=== PATIENT | female | born 1955 | race Caucasian/White ===

== ENCOUNTER 2023-05-06 07:54 | Outpatient (CLI) | payer MEDICARE, SELFPAY ==
--- NOTE | ~2023-05-06 | CT_ITS ---
CT Scan of the Chest without Contrast: Clinical Indication: Lung cancer screening, personal history of nicotine dependence Technique: Contiguous sections were acquired throughout the chest without intravenous contrast. Dose reduction technique was used on this scan by utilizing automated exposure control and iterative recon struction technique. The dose-length product (DLP) was 77.07 mGy-cm. Findings: There is no evidence of any significant mediastinal, hilar or axillary lymphadenopathy. The mediastin al soft tissues appear normal. There is no evidence of pleural or pericardial effusion. 4 mm right upper lobe pulmonary nodule noted (axial image 39). Calcified left lower lobe granuloma no radha. Images through the upper abdomen reveal no abnormalities. Impression: Lung RADS 2: Benign appearance. 12 month follow-up screening CT advised. Reviewed, dictated and finalized at location . Impression: Lung RADS 2: Benign appearance. 12 month follow-up screening CT advised.
--- NOTE | ~2023-05-06 | US_ITS ---
EXAMINATION: US aorta DATE: 05/06/2023 08:47 INDICATION: Abdominal aortic aneurysm screening TECHNIQUE: Grayscale, color Doppler, and pulsed Doppler images of the aorta and common iliac arteries were obtained. COMPARISON: None. FINDINGS: Maximum vascular dimensions are as follows: Proximal aorta: 2.3 cm Mid aorta: 2.1 cm Distal aorta: 1. cm Right common iliac artery: 0.9 cm Left common iliac artery: 1.0 cm There is no evidence of abdominal aortic aneurysm. IMPRESSION: 1. No sonographically detected abdominal aortic aneurysm. Reviewed, dictated and finalized at location B.
== END 2023-05-06 07:55 | disposition home or self-care (01) ==
LOC: CHSIMG 08:00
PROVIDERS: PCP Internal Medicine; Visit Provider Internal Medicine
DX: Z12.2 Encounter for screening for malignant neoplasm of respiratory organs (principal); Z87.891 Personal history of nicotine dependence; Z13.6 Encounter for screening for cardiovascular disorders
CPT/HCPCS: 71271; 76775

== ENCOUNTER 2023-10-07 11:02 | Outpatient (CLI) | payer MEDICARE, SELFPAY ==
--- NOTE | ~2023-10-07 | XR_ITS ---
Right Knee Technique: AP, lateral, and sunrise views were obtained. Clinical History: Enchondroma Findings: No fracture or dislocation is seen. There is a small osteochondroma arising from the medial aspect of the distal femoral metaphyseal region. Possible additional sessile osteochondroma the prox imal fibular versus healed fracture deformity. There is mild tricompartmental degenerative spurring. Soft tissues are unremarkable. No joint effusion is seen. Impression: Osteochondroma at the medial aspect of the distal femoral metaphyseal region. Possible additional sessile osteochondroma of the proximal fibula versus healed fracture deformity. Mild right lumbar mental degenerative change. Reviewed, dictated and finalized at location . INE SPECIALIST Impression: Osteochondroma at the medial aspect of the distal femoral metaphyseal region. Possible additional sessile osteochondroma of the proximal fibula versus healed fracture deformity. Mild right lumbar mental degenerative change.
== END 2023-10-07 11:03 | disposition home or self-care (01) ==
LOC: CHSIMG 11:04
PROVIDERS: PCP Internal Medicine; Visit Provider Internal Medicine
DX: M25.561 Pain in right knee (principal); D16.9 Benign neoplasm of bone and articular cartilage, unspecified
CPT/HCPCS: 73562

== ENCOUNTER 2023-10-10 13:56 | Outpatient (CLI) | payer MEDICARE, SELFPAY ==
[2023-10-10 14:09] LABS: Basophils Absolute Auto 0.03 K/mm3 (0.00-0.10); Basophils Percent Auto 0.4 % (0.0-1.0); Eosinophils Absolute Auto 0.15 K/mm3 (0.02-0.50); Eosinophils Percent Auto 2.2 % (1.0-6.0); Hematocrit 46.4 % (35.0-42.0); Hemoglobin 15.6 g/dL (11.7-13.8); Immature Granulocyte Absolute 0.02 K/mm3 (0.00-0.00); Immature Granulocyte Percent A 0.3 % (0.0-0.0); Lymphocytes Absolute Auto 2.12 K/mm3 (1.10-4.50); Lymphocytes Percent Auto 30.8 % (18.0-42.0); Mean Corpuscular HGB Conc 33.6 g/dL (32.0-36.0); Mean Corpuscular Volume 95.1 fL (78.0-102.0); Mean Platelet Volume 9.7 fl (9.2-11.8); Monocytes Absolute Auto 0.52 K/mm3 (0.10-0.90); Monocytes Percent Auto 7.5 % (2.0-11.0); Neutrophils Absolute Auto 4.1 K/mm3 (1.7-7.2); Neutrophils Percent Auto 58.8 % (50.0-70.0); Platelet Count Result 235 K/mm3 (150-420); Red Blood Count 4.88 M/mm3 (4.20-5.40); Red Cell Distribution Width 12.4 % (11.6-14.4); White Blood Count 6.9 K/mm3 (4.8-10.8)
[2023-10-10 14:43] LABS: Alanine Aminotransferase 24 U/L (14-59); Albumin Level 3.9 g/dL (3.4-5.0); Alkaline Phosphatase 102 U/L (46-116); Amylase 70 U/L (25-115); Anion Gap 4 mmol/L (8-16); Aspartate Amino Transferase 14 U/L (15-37); Bilirubin,Total 0.6 mg/dL (0.00-1.00); Blood Urea Nitrogen 17 mg/dL (7-18); Carbon Dioxide 33 mmol/L (21-32); Chloride 100 mmol/L (98-108); Creatine Kinase 103 U/L (26-192); Estimated Glomerular Filt Rate > 60; Glucose 92 mg/dL (70-99); Lipase 87 U/L (16-77); Osmolality Calculated 285 mOsm/kg (285-295); Potassium 3.4 mmol/L (3.5-5.1); Sodium 137 mmol/L (136-145)
[2023-10-10 14:53] LABS: Calcium 9.5 mg/dL (8.5-10.1)
== END 2023-10-10 13:57 | disposition home or self-care (01) ==
LOC: CHSLAB 13:58
PROVIDERS: PCP Internal Medicine; Visit Provider Internal Medicine
DX: R10.13 Epigastric pain (principal); R07.89 Other chest pain
CPT/HCPCS: 36415; 80053; 82150; 82550; 82553; 83690; 84484; 85025

== ENCOUNTER → 2023-10-15 08:16 | Outpatient (CLI) | payer MEDICARE, SELFPAY ==
--- NOTE | ~2023-10-15 | US_ITS ---
US right upper quadrant INDICATION: Acute pancreatitis PROCEDURE: Realtime right upper abdominal ultrasound. COMPARISON: No prior studies for comparison. FINDINGS: The pancreas is normal without focal mass or pancreatic ductal dilation. Liver echotexture is normal without focal mass or intrahepatic biliary dilatation. There is normal directional flow i n the portal vein. There is a small gallbladder polyp measuring 4 mm. Common bile duct measures 4 mm. No sonographic M urphy's sign. IMPRESSION: 1: Gallbladder polyp measuring 4 mm. Reviewed, dictated and finalized at location A. TS BOOK SERVER
== END ==
PROVIDERS: PCP Internal Medicine; Visit Provider Internal Medicine
DX: K85.90 Acute pancreatitis without necrosis or infection, unspecified (principal); K82.4 Cholesterolosis of gallbladder
CPT/HCPCS: 76705

== ENCOUNTER 2023-10-25 07:19 | Outpatient (CLI) | payer MEDICARE, SELFPAY | END 2023-10-25 07:20 | disposition home or self-care (01) | LOC: CHSIMG 07:25 | PROVIDERS: PCP Internal Medicine; Visit Provider Internal Medicine | DX: K85.90 Acute pancreatitis without necrosis or infection, unspecified (principal) | CPT/HCPCS: 99199 ==

== ENCOUNTER 2023-10-31 08:43 | Outpatient (CLI) | payer MEDICARE, SELFPAY ==
[2023-10-31 08:56] LABS: Basophils Absolute Auto 0.02 K/mm3 (0.00-0.10); Basophils Percent Auto 0.3 % (0.0-1.0); Eosinophils Absolute Auto 0.27 K/mm3 (0.02-0.50); Eosinophils Percent Auto 4.1 % (1.0-6.0); Hematocrit 44.1 % (35.0-42.0); Hemoglobin 14.3 g/dL (11.7-13.8); Immature Granulocyte Absolute 0.02 K/mm3 (0.00-0.00); Immature Granulocyte Percent A 0.3 % (0.0-0.0); Lymphocytes Absolute Auto 2.29 K/mm3 (1.10-4.50); Lymphocytes Percent Auto 34.9 % (18.0-42.0); Mean Corpuscular HGB Conc 32.4 g/dL (32.0-36.0); Mean Corpuscular Hemoglobin 31.1 pg (27.0-31.0); Mean Corpuscular Volume 95.9 fL (78.0-102.0); Mean Platelet Volume 9.9 fl (9.2-11.8); Monocytes Absolute Auto 0.52 K/mm3 (0.10-0.90); Monocytes Percent Auto 7.9 % (2.0-11.0); Neutrophils Absolute Auto 3.5 K/mm3 (1.7-7.2); Neutrophils Percent Auto 52.5 % (50.0-70.0); Platelet Count Result 199 K/mm3 (150-420); Red Cell Distribution Width 12.4 % (11.6-14.4); White Blood Count 6.6 K/mm3 (4.8-10.8)
[2023-10-31 09:41] LABS: Alanine Aminotransferase 24 U/L (14-59); Albumin Level 3.6 g/dL (3.4-5.0); Alkaline Phosphatase 129 U/L (46-116); Amylase 78 U/L (25-115); Anion Gap 7 mmol/L (8-16); Aspartate Amino Transferase 17 U/L (15-37); Bilirubin,Total 0.3 mg/dL (0.00-1.00); Blood Urea Nitrogen 16 mg/dL (7-18); Calcium 9.1 mg/dL (8.5-10.1); Carbon Dioxide 32 mmol/L (21-32); Chloride 99 mmol/L (98-108); Estimated Glomerular Filt Rate > 60; Glucose 94 mg/dL (70-99); Lipase 93 U/L (16-77); Osmolality Calculated 287 mOsm/kg (285-295); Potassium 3.8 mmol/L (3.5-5.1); Sodium 138 mmol/L (136-145); Total Protein 6.5 g/dL (6.4-8.2)
== END 2023-10-31 08:44 | disposition home or self-care (01) ==
LOC: CHSLAB 08:46
PROVIDERS: PCP Internal Medicine; Visit Provider Internal Medicine
DX: K85.90 Acute pancreatitis without necrosis or infection, unspecified (principal)
CPT/HCPCS: 36415; 80053; 82150; 83690; 85025

== ENCOUNTER 2024-10-10 10:12 | Outpatient (CLI) | payer MEDICARE, SELFPAY ==
--- NOTE | ~2024-10-10 | CT_ITS ---
CT Scan of the Chest without Contrast: Clinical Indication: Lung cancer screening, nicotine dependence Technique: Contiguous sections were acquired throughout the chest without intravenous contrast. Dose reduction technique was used on this scan by utilizing automated exposure control and iterative recon struction technique. The dose-length product (DLP) was 73.64 mGy-cm. COMPARISON: 05/06/2023 Findings: There is no evidence of any significant mediastinal, hilar or axillary lymphadenopathy. The mediastin al soft tissues appear normal. There is no evidence of pleural or pericardial effusion. Stable small irregular right upper lobe pulmonary nodule (axial image 39). Stable calcified right upp er lobe and left lower lobe granulomas. Images through the upper abdomen reveal no abnormalities. Impression: Lung RADS 2: Benign appearance. 12 month follow-up screening CT advised. Reviewed, dictated and finalized at [facility]. EATIONAL LEADER Impression: Lung RADS 2: Benign appearance. 12 month follow-up screening CT advised.
== END 2024-10-10 10:13 | disposition home or self-care (01) ==
PROVIDERS: PCP Internal Medicine; Visit Provider Internal Medicine
DX: Z12.2 Encounter for screening for malignant neoplasm of respiratory organs (principal); Z87.891 Personal history of nicotine dependence
CPT/HCPCS: 71271

== ENCOUNTER 2025-04-17 09:38 | Outpatient (CLI) | payer MEDICARE, SELFPAY ==
--- NOTE | ~2025-04-17 | DEXA_ITS ---
Bone Density Report Name: CHYNA BOYKIN Age: 69 Sex: Female Ethnicity: White Date of : 1955 Indication: postmenopausal; screening for osteoporosis; height loss; Referring Provider: Audra Isbell Study: Bone densitometry was performed. Exam Date: April 17, 2025 Accession number: [id number] Bone Density: Region BMD T-score Z-score Classification AP Spine(L1-L4) 0.805 -2.2 -0.1 Osteopenia Femoral Neck (Left) 0.638 -1.9 -0.1 Osteopenia Total Hip (Left) 0.828 -0.9 0.5 Normal Femoral Neck (Right) 0.635 -1.9 -0.2 Osteopenia Total Hip (Right) 0.889 -0.4 1.0 Normal Femoral Neck Mean 0.637 -1.9 -0.1 Osteopenia Total Hip Mean 0.859 -0.7 0.8 Normal World Health Organization criteria for BMD impression classify patients as: Normal (T-score at or above -1.0), Osteopenia (T-score between -1.0 and -2.5), or Osteoporosis (T-score at or below -2.5). 10-year Fracture Risk(1): Major Osteoporotic Fracture 11% Hip Fracture 1.9% Reported Risk Factors: [place] (), Neck BMD=0.635, BMI=31.4 (1) FRAX(R) Version 3.08. Fracture probability calculated for an untreated patient. Fracture probability may be lower if the patient has received treatment. Clinical Information Provided by Patient: Has used the following medications: Vitamin D, Calcium Patient maximum height was 62 Menopause Age: 50 No regular weight bearing exercise Drinks caffeinated beverages Onset of menses at age 12 Number of children 0 Impression: The patient has low bone mass, based on the Total Spine T-score. Discussion: BONE DENSITY IS LOW AT ONE OR MORE SKELETAL SITES. This patient's lowest T-score is low at one or more skeletal sites. It meets the World Health Organization's (WHO) criteria for ?low bone mass? (T-score between -1.0 and -2.5). The patient's 10-year risk of fracture as calculated by FRAX is less than the threshold where pharmacological therapy is recommended by the National Osteoporosis Foundation (NOF). However, all treatment decisions require clinical judgment and consideration of individual patient factors, including patient preferences, comorbidities, previous drug use, risk factors not captured in the FRAX model (e.g., frailty, falls, vitamin D deficiency, increased bone turnover, interval significant decline in bone density) and possible under or overestimation of fracture risk by FRAX. The patient should follow a healthful lifestyle (good nutrition with adequate calcium and vitamin D, and appropriate weight-bearing exercise). Follow-Up: Consider repeating this study in 2 to 3 years to reassess this patient's status, or sooner if there is some new clinical indication. Reported by: RENETTA on 04/17/2025 9:58:00 AM. Reviewed, dictated and finalized at location A.
== END 2025-04-17 09:39 | disposition home or self-care (01) ==
LOC: CHSIMG 09:39
PROVIDERS: PCP Internal Medicine; Visit Provider Internal Medicine
DX: M81.0 Age-related osteoporosis without current pathological fracture (principal); M85.89 Other specified disorders of bone density and structure, multiple sites
CPT/HCPCS: 77080